=== PATIENT | male | born 1950 | race Caucasian/White ===

== ENCOUNTER 2016-12-08 09:27 | Emergency (ER) | payer MEDICARE, OTHER ==
[~2016-12-08] VITALS: Ht 180.3 cm; Wt 129.3 kg
[~2016-12-08 09:27] MED LIST: CLOP75TA PO; FENO145T PO; GLYB5TAB3 PO; METF500T4 PO; METO-269 PO; PIOG15TA21 PO; QUIN40TA7 PO; SIMV40TA3 PO
[2016-12-08 09:46] VITALS: BP 148/61
--- NOTE | 2016-12-08 10:09 | PHYS DOC ---
Past Medical History Past Medical History: Diabetes-Type II, High Cholesterol, Hypertension, [place], Renal Failure, Other Additional Past Medical Histor: CIRRHOSIS Past Surgical History: Cholecystectomy, Other Additional Past Surgical Histo: cardiac stents Additional Information: nonsmoker Alcohol Use: Occasionally Drug Use: None Adult General Chief Complaint Chief Complaint: SORE THROAT HPI HPI Patient is a 66 year old male who presents with sore throat starting last night. He has had nasal congestion and productive cough for a few days. He denies fever, difficulty breathing, or difficulty swallowing. Patient reports that he was seen at urgent care 2 days ago and diagnosed with pneumonia. He was prescribed doxycycline, prednisone, and an albuterol inhaler. He feels like the cough and shortness of breath he was previously having have improved with the medication. He sees a PCP at [facility]. Review of Systems Review of Systems Constitutional: Denies fever or chills. [] Eyes: Denies change in visual acuity, redness, or eye pain. [] HENT: Denies ear pain. Reports sore throat and nasal congestion. Respiratory: Denies shortness of breath. Reports productive cough. Cardiovascular: Denies chest pain, palpitations or edema. [] Musculoskeletal: Denies back pain or joint pain. [] Integument: Denies rash or skin lesions. [] Neurologic: Denies headache, focal weakness or sensory changes. [] All systems reviewed and negative unless otherwise stated in the HPI. Allergies Allergies Allergies Coded Allergies Type Severity Reaction Last Updated Verified No Known Drug Allergies 07/13/14 No Physical Exam Physical Exam Constitutional: Well developed, well nourished, no acute distress, non-toxic appearance. [] HENT: Normocephalic, atraumatic, bilateral external ears normal, oropharynx moist, no oral exudates, nose normal. Bilateral TMs without erythema or bulging. There is posterior pharyngeal erythema without tonsillar edema or exudates. There is no peritonsillar abscess or uvular deviation. Eyes: PERRLA, EOMI, conjunctiva normal, no discharge. [] Neck: Normal range of motion, no tenderness, supple, no stridor. Bilateral submandibular lymph node swelling without tenderness. Cardiovascular: Heart rate regular rhythm, no murmur [] Lungs & Thorax: Bilateral breath sounds clear to auscultation without wheezes, rales, or rhonchi. Skin: Warm, dry, no erythema, no rash. [] Neurologic: Alert and oriented X 3, normal motor function, normal sensory function, no focal deficits noted. [] Psychologic: Affect normal, judgement normal, mood normal. [] Current Patient Data Vital Signs Vital Signs Date Time Temp Pulse Resp B/P Pulse Ox O2 Delivery O2 Flow Rate FiO2 12/08/16 09:46 98.7 106 18 148/61 97 Room Air 98.7 EKG EKG [] Radiology/Procedures Radiology/Procedures [] Course & Med Decision Making Course & Med Decision Making Pertinent Labs and Imaging studies reviewed. (See chart for details) Patient presents with sore throat after initiation of antibiotics and steroids for recently diagnosed pneumonia. On exam, the airway is patent and he does not have any difficulty swallowing. He is instructed to continue the medications as prescribed, as the antibiotics and steroids should also help with the swelling he feels in his throat. Return precautions were discussed. He verbalizes understanding and agrees with plan. Dragon Disclaimer Dragon Disclaimer This electronic medical record was generated, in whole or in part, using a voice recognition dictation system. Departure Departure Impression: Primary Impression: Pharyngitis Disposition: 01 HOME, SELF-CARE Condition: STABLE Patient Instructions: Viral and Bacterial Pharyngitis, [id number] Additional Instructions: Please continue to take the antibiotic and steroids prescribed by your doctor. These will help with your sore throat. Return to the emergency department if you have difficulty breathing, swelling of the lips, tongue, or throat, difficulty swallowing, or other new or concerning symptoms. Problem Qualifiers Primary Impression: Pharyngitis Pharyngitis/tonsillitis etiology: unspecified etiology Qualified Code: J02.9 - Acute pharyngitis, unspecified SHA MENDIOLA Dec 08, 2016 10:09
== END 2016-12-08 10:40 | disposition home or self-care (01) ==
LOC: ER 09:27
DX: J02.9 Acute pharyngitis, unspecified (principal); E11.22 Type 2 diabetes mellitus with diabetic chronic kidney disease; I12.9 Hypertensive chronic kidney disease with stage 1 through stage 4 chronic kidney disease, or unspecified chronic kidney disease; N18.9 Chronic kidney disease, unspecified; E78.00 Pure hypercholesterolemia, unspecified; I25.2 Old myocardial infarction; Z95.5 Presence of coronary angioplasty implant and graft
CPT/HCPCS: 99281